=== PATIENT | male | born 1950 | race Caucasian/White ===

== ENCOUNTER → 2019-03-23 | Outpatient (REF) ==
[~2019-03-23] MED LIST: ACET65TA OR; COLA100C2 OR; FLEEENE4 PR; FOLI1TAB OR; KEPPRA OR; KEPPRA PO; LAMI1TAB9 OR; MILKSUS OR; MULTIVIT OR; SENO8.6T5 OR; TOPI200T OR; VIT D 2000 OR; VITA100T OR
[2019-03-23 09:14] LABS: HEMATOCRIT 43.8 % (42.0-52.0); HEMOGLOBIN 13.7 g/dl (13.5-17.5); MEAN CORPUSCULAR HGB CONC 31.3 g/dl (32.0-36.5); MEAN CORPUSCULAR VOLUME 92.8 fl (80.0-96.0); PLATELET COUNT, AUTOMATED 439 10^3/uL (150-450); RED BLOOD COUNT 4.72 10^6/uL (4.30-6.10); WHITE BLOOD COUNT 6.5 10^3/uL (4.0-10.0)
[2019-03-23 09:46] LABS: ALBUMIN 3.1 GM/DL (3.2-5.2); BILIRUBIN,TOTAL 0.4 MG/DL (0.2-1.0); CREATININE FOR GFR 1.31 MG/DL (0.70-1.30); GLOMERULAR FILTRATION RATE 57.6 (>42); TOTAL PROTEIN 8.7 GM/DL (6.4-8.2)
[2019-03-26 15:37] LABS: LAMOTRIGINE (LAMICTAL) 9.4 ug/mL (2.0-20.0); LEVETIRACETAM (KEPPRA) 50.5 ug/mL (10.0-40.0)
== END ==
LOC: SKLAB5 10:34
PROVIDERS: ATTEND Family Medicine
DX: R56.9 Unspecified convulsions (principal); Z51.81 Encounter for therapeutic drug level monitoring

== ENCOUNTER → 2019-03-28 | Outpatient (REF) | payer MEDICAID, MEDICARE | LOC: SKLAB5 10:32 | PROVIDERS: ATTEND Family Medicine | DX: D64.9 Anemia, unspecified (principal) ==

== ENCOUNTER → 2019-05-01 | Outpatient (REF) | payer MEDICARE, MEDICAID | LOC: M SMT 13:22 | PROVIDERS: ATTEND Urology | DX: N30.01 Acute cystitis with hematuria (principal) | CPT/HCPCS: 81002; 87086; G0463 ==

== ENCOUNTER → 2019-05-02 | Outpatient (REF) | payer MEDICARE, MEDICAID | LOC: SKLAB5 10:25 | PROVIDERS: ATTEND Family Medicine | DX: R56.9 Unspecified convulsions (principal) ==

== ENCOUNTER → 2019-05-03 | Outpatient (REF) | payer MEDICARE, MEDICAID | LOC: SKLAB5 09:14 | PROVIDERS: ATTEND Family Medicine | DX: R56.9 Unspecified convulsions (principal) ==

== ENCOUNTER → 2019-05-19 | Outpatient (REF) | payer MEDICARE, MEDICAID ==
[2019-05-19 10:30] LABS: APPEARANCE, URINE TURBID (CLEAR); COLOR, URINE AMBER (YELLOW); GLUCOSE, URINE (UA) AUTO NEGATIVE (NEGATIVE); PROTEIN, URINE AUTO 2+ mg/dL (NEGATIVE); SPECIFIC GRAVITY URINE AUTO 1.017 (1.002-1.035)
[2019-05-19 10:31] LABS: BACTERIA, URINE AUTO 2+ (NEGATIVE); BILIRUBIN, URINE AUTO NEGATIVE (NEGATIVE); BLOOD, URINE BLOOD 1 (NEGATIVE); KETONE, URINE AUTO NEGATIVE (NEGATIVE); LEUKOCYTE ESTERASE, URINE AUTO 3+ (NEGATIVE); NITRITE, URINE AUTO POSITIVE (NEGATIVE); RBC, URINE AUTO 17 /HPF (0-3); RENAL EPITHELIAL CELLS 2 /HPF; WBC, URINE AUTO 464 /HPF (0-3)
[2019-05-19 10:32] LABS: CALCIUM OXALATE CRYSTALS SMALL; MUCUS, URINE SMALL (NEGATIVE)
== END ==
LOC: SKLAB5 08:54
PROVIDERS: ATTEND Family Medicine
DX: N20.0 Calculus of kidney (principal)

== ENCOUNTER → 2019-05-22 | Outpatient (CLI) | payer MEDICARE, MEDICAID ==
--- NOTE | 2019-05-22 15:15 | REP ---
CT ABDOMEN WITHOUT IV OR ORAL CONTRAST: RENAL STONE PROTOCOL. HISTORY: Renal calculi. 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 The arms and hands overlie the abdomen. The patient was apparently unable to raise them out of the field of view. Axial CT images demonstrate no evidence of infiltrate or mass in the lung bases. No pleural or pericardial effusion. The liver and the spleen are normal in size, homogeneous in texture. No adrenal lesion is seen on either side. Pancreas is unremarkable. No abnormality is noted in the gallbladder. There is no hydronephrosis on either side. There is a 2 mm calcific density in the lower pole collecting system of the left kidney consistent with tiny intrarenal calculus. There is a 3 mm calculus at the lower pole collecting system of the right kidney. An adjacent smaller calculus is seen on coronal multiplanar re-formation images. There is a low-density cyst in the right kidney measuring 1.4 cm in diameter. There is a 2 mm stone in the upper pole collecting system of the left kidney. There is no evidence of hydronephrosis. There is a small focal outpouching of the anterior wall of the abdominal aorta. Abdominal aortic dimension at this level is 2.7 cm. A small focal aneurysm. Small and large intestinal bowel loops are unremarkable. Some vascular calcification. Impression: Bilateral intrarenal nephrolithiasis without hydronephrosis. Small right renal cyst. 2.7 cm infrarenal abdominal aortic aneurysm with small focal outpouching of its anterior abdominal wall. Electronically Signed by Kremit Sainz MD 05/22/2019 03:24 P
== END ==
LOC: M RAD 13:25
PROVIDERS: ATTEND Urology
DX: N20.0 Calculus of kidney (principal)

== ENCOUNTER → 2019-07-19 | Outpatient (REF) | LOC: SKLAB5 14:44 | PROVIDERS: ATTEND Internal Medicine | DX: Z03.818 Encounter for observation for suspected exposure to other biological agents ruled out (principal) ==

== ENCOUNTER → 2019-09-07 | Outpatient (REF) | payer MEDICARE, MEDICAID ==
[2019-09-07 08:16] LABS: HEMATOCRIT 38.6 % (42.0-52.0); HEMOGLOBIN 12.1 g/dl (13.5-17.5); MEAN CORPUSCULAR HEMOGLOBIN 30.2 pg (27.0-33.0); MEAN CORPUSCULAR HGB CONC 31.3 g/dl (32.0-36.5); MEAN CORPUSCULAR VOLUME 96.3 fl (80.0-96.0); PLATELET COUNT, AUTOMATED 255 10^3/uL (150-450); RED BLOOD COUNT 4.01 10^6/uL (4.30-6.10); WHITE BLOOD COUNT 4.8 10^3/uL (4.0-10.0)
[2019-09-07 08:38] LABS: ALBUMIN 2.9 GM/DL (3.2-5.2); ALT/SGPT 15 U/L (12-78); BILIRUBIN,TOTAL 0.2 MG/DL (0.2-1.0); BLOOD UREA NITROGEN 12 MG/DL (7-18); CALCIUM LEVEL 8.7 MG/DL (8.8-10.2); CARBON DIOXIDE LEVEL 24 MEQ/L (21-32); CHLORIDE LEVEL 113 MEQ/L (98-107); GLOMERULAR FILTRATION RATE > 60.0 (>42); GLUCOSE, FASTING 104 MG/DL (70-100); POTASSIUM SERUM 3.7 MEQ/L (3.5-5.1); SODIUM LEVEL 144 MEQ/L (136-145); TOTAL PROTEIN 7.7 GM/DL (6.4-8.2)
== END ==
LOC: SKLAB5 08:09
PROVIDERS: ATTEND Family Medicine
DX: D64.9 Anemia, unspecified (principal); G81.91 Hemiplegia, unspecified affecting right dominant side

== ENCOUNTER → 2019-10-12 | Outpatient (REF) | payer MEDICARE, MEDICAID | LOC: SKLAB5 12:15 | DX: Z51.81 Encounter for therapeutic drug level monitoring (principal) ==

== ENCOUNTER → 2019-11-09 | Outpatient (REF) | payer MEDICARE, MEDICAID ==
[2019-11-17 15:07] LABS: LAMOTRIGINE (LAMICTAL) 8.5 ug/mL (2.0-20.0); LEVETIRACETAM (KEPPRA) 35.5 ug/mL (10.0-40.0)
== END ==
LOC: SKLAB5 06:35
DX: G40.909 Epilepsy, unspecified, not intractable, without status epilepticus (principal)

== ENCOUNTER → 2019-12-08 | Outpatient (CLI) | payer MEDICARE, MEDICAID | LOC: M RAD 14:59 | PROVIDERS: ATTEND Nurse Practitioner Adult Health | DX: R32 Unspecified urinary incontinence (principal); Z53.9 Procedure and treatment not carried out, unspecified reason ==

== ENCOUNTER → 2020-01-01 | Outpatient (CLI) | payer MEDICARE, MEDICAID | LOC: M RAD 10:57 | PROVIDERS: ATTEND Nurse Practitioner Adult Health | DX: Z53.9 Procedure and treatment not carried out, unspecified reason (principal) ==

== ENCOUNTER → 2020-01-24 | Outpatient (REF) | payer MEDICARE, MEDICAID | LOC: SKLAB5 01-23 15:03 → EDSTATUS 02-24 15:20 | PROVIDERS: ATTEND Internal Medicine | DX: Z20.828 Contact with and (suspected) exposure to other viral communicable diseases (principal) ==

== ENCOUNTER → 2020-01-31 | Outpatient (REF) | payer MEDICARE, MEDICAID | LOC: SKLAB5 08:00 | PROVIDERS: ATTEND Internal Medicine | DX: Z20.828 Contact with and (suspected) exposure to other viral communicable diseases (principal) ==

== ENCOUNTER → 2020-02-14 | Outpatient (REF) | payer MEDICARE, MEDICAID | LOC: SKLAB5 06:40 | PROVIDERS: ATTEND Family Medicine | DX: Z20.828 Contact with and (suspected) exposure to other viral communicable diseases (principal) ==

== ENCOUNTER → 2020-02-21 | Outpatient (REF) | payer MEDICARE, MEDICAID | LOC: SKLAB5 09:11 | DX: Z20.828 Contact with and (suspected) exposure to other viral communicable diseases (principal) ==

== ENCOUNTER → 2020-02-22 | Outpatient (REF) | payer MEDICARE, MEDICAID ==
[2020-02-22 12:17] LABS: HEMATOCRIT 41.3 % (42.0-52.0); HEMOGLOBIN 12.5 g/dl (13.5-17.5); MEAN CORPUSCULAR HEMOGLOBIN 28.5 pg (27.0-33.0); MEAN CORPUSCULAR HGB CONC 30.3 g/dl (32.0-36.5); MEAN CORPUSCULAR VOLUME 94.3 fl (80.0-96.0); PLATELET COUNT, AUTOMATED 222 10^3/uL (150-450); RED BLOOD COUNT 4.38 10^6/uL (4.30-6.10); WHITE BLOOD COUNT 5.9 10^3/uL (4.0-10.0)
[2020-02-22 12:46] LABS: BLOOD UREA NITROGEN 16 MG/DL (7-18); CALCIUM LEVEL 8.8 MG/DL (8.8-10.2); CARBON DIOXIDE LEVEL 25 MEQ/L (21-32); CHLORIDE LEVEL 110 MEQ/L (98-107); GLOMERULAR FILTRATION RATE > 60.0 (>42); GLUCOSE, FASTING 84 MG/DL (70-100); SODIUM LEVEL 142 MEQ/L (136-145)
== END ==
LOC: SKLAB5 07:21
PROVIDERS: ATTEND Nurse Practitioner Adult Health
DX: R53.83 Other fatigue (principal)

== ENCOUNTER → 2020-02-28 | Outpatient (REF) | payer MEDICARE, MEDICAID | LOC: SKLAB5 05:59 | DX: Z20.828 Contact with and (suspected) exposure to other viral communicable diseases (principal) ==

== ENCOUNTER → 2020-03-06 | Outpatient (REF) | payer MEDICARE, MEDICAID | LOC: SKLAB5 06:31 | DX: Z20.828 Contact with and (suspected) exposure to other viral communicable diseases (principal) ==

== ENCOUNTER → 2020-03-13 | Outpatient (REF) | payer MEDICARE, MEDICAID | LOC: SKLAB5 07:01 | DX: Z11.52 Encounter for screening for COVID-19 (principal) ==

== ENCOUNTER → 2020-03-14 | Outpatient (REF) | payer MEDICARE, MEDICAID ==
[2020-03-14 10:49] LABS: HEMATOCRIT 42.2 % (42.0-52.0); HEMOGLOBIN 13.1 g/dl (13.5-17.5); MEAN CORPUSCULAR HEMOGLOBIN 29.6 pg (27.0-33.0); MEAN CORPUSCULAR VOLUME 95.3 fl (80.0-96.0); PLATELET COUNT, AUTOMATED 209 10^3/uL (150-450); RED BLOOD COUNT 4.43 10^6/uL (4.30-6.10); WHITE BLOOD COUNT 4.8 10^3/uL (4.0-10.0)
[2020-03-14 12:51] LABS: ALBUMIN 3.3 GM/DL (3.2-5.2); BILIRUBIN,TOTAL 0.5 MG/DL (0.2-1.0); CALCIUM LEVEL 9.1 MG/DL (8.8-10.2); CREATININE FOR GFR 1.31 MG/DL (0.70-1.30); GLOMERULAR FILTRATION RATE 57.4 (>42); POTASSIUM SERUM 3.8 MEQ/L (3.5-5.1); TOTAL PROTEIN 7.8 GM/DL (6.4-8.2)
== END ==
LOC: SKLAB5 09:01
DX: D33.2 Benign neoplasm of brain, unspecified (principal)

== ENCOUNTER → 2020-03-20 | Outpatient (REF) | payer MEDICARE, MEDICAID | LOC: SKLAB5 06:40 | PROVIDERS: ATTEND Internal Medicine | DX: Z20.822 Contact with and (suspected) exposure to COVID-19 (principal) ==

== ENCOUNTER → 2020-03-27 | Outpatient (REF) | payer MEDICARE, MEDICAID | LOC: SKLAB5 07:17 | PROVIDERS: ATTEND Internal Medicine | DX: Z20.822 Contact with and (suspected) exposure to COVID-19 (principal) ==

== ENCOUNTER → 2020-04-03 | Outpatient (REF) | payer MEDICARE, MEDICAID | LOC: SKLAB5 07:08 | PROVIDERS: ATTEND Internal Medicine | DX: Z20.822 Contact with and (suspected) exposure to COVID-19 (principal) ==

== ENCOUNTER → 2020-04-03 | Outpatient (REF) | payer MEDICARE, MEDICAID | LOC: SKLAB5 07:08 | PROVIDERS: ATTEND Internal Medicine | DX: Z20.822 Contact with and (suspected) exposure to COVID-19 (principal) ==

== ENCOUNTER → 2020-04-10 | Outpatient (REF) | payer MEDICARE, MEDICAID | LOC: SKLAB5 07:21 | PROVIDERS: ATTEND Internal Medicine | DX: Z20.822 Contact with and (suspected) exposure to COVID-19 (principal) ==

== ENCOUNTER → 2020-04-11 | Outpatient (REF) | payer MEDICARE, MEDICAID | LOC: SKLAB5 10:24 | DX: R56.9 Unspecified convulsions (principal) ==

== ENCOUNTER → 2020-04-17 | Outpatient (REF) | payer MEDICARE, MEDICAID | LOC: SKLAB5 06:23 | PROVIDERS: ATTEND Internal Medicine | DX: Z20.822 Contact with and (suspected) exposure to COVID-19 (principal) ==

== ENCOUNTER → 2020-04-24 | Outpatient (REF) | payer MEDICARE, MEDICAID | LOC: SKLAB5 06:35 | PROVIDERS: ATTEND Internal Medicine | DX: Z20.822 Contact with and (suspected) exposure to COVID-19 (principal) ==

== ENCOUNTER → 2020-05-01 | Outpatient (REF) | payer MEDICARE, MEDICAID | LOC: SKLAB5 08:00 | PROVIDERS: ATTEND Internal Medicine | DX: Z20.822 Contact with and (suspected) exposure to COVID-19 (principal) ==

== ENCOUNTER → 2020-05-09 | Outpatient (REF) | payer MEDICARE, MEDICAID | LOC: SKLAB5 06:06 | PROVIDERS: ATTEND Internal Medicine | DX: Z20.822 Contact with and (suspected) exposure to COVID-19 (principal) ==

== ENCOUNTER → 2020-05-15 | Outpatient (REF) | payer MEDICARE, MEDICAID | LOC: SKLAB5 06:30 | PROVIDERS: ATTEND Internal Medicine | DX: Z53.9 Procedure and treatment not carried out, unspecified reason (principal) ==

== ENCOUNTER → 2020-05-21 | Outpatient (REF) | payer MEDICARE, MEDICAID ==
[2020-05-21 18:30] LABS: APPEARANCE, URINE HAZY (CLEAR); BACTERIA, URINE AUTO 2+ (NEGATIVE); BILIRUBIN, URINE AUTO NEGATIVE (NEGATIVE); BLOOD, URINE BLOOD NEGATIVE (NEGATIVE); COLOR, URINE YELLOW (YELLOW); GLUCOSE, URINE (UA) AUTO NEGATIVE (NEGATIVE); KETONE, URINE AUTO NEGATIVE (NEGATIVE); LEUKOCYTE ESTERASE, URINE AUTO 3+ (NEGATIVE); MUCUS, URINE SMALL (NEGATIVE); NITRITE, URINE AUTO POSITIVE (NEGATIVE); PROTEIN, URINE AUTO 1+ mg/dL (NEGATIVE); RBC, URINE AUTO 5 /HPF (0-3); SQUAMOUS EPITHELIAL CELL UR AU 1 /HPF (0-6); UROBILINOGEN, URINE AUTO 0.2 mg/dL (0.0-2.0); WBC, URINE AUTO TNTC /HPF (0-3)
== END ==
LOC: SKLAB5 14:32
DX: R41.82 Altered mental status, unspecified (principal); R53.83 Other fatigue

== ENCOUNTER → 2020-05-22 | Outpatient (REF) | payer MEDICARE, MEDICAID | LOC: SKLAB5 07:34 | PROVIDERS: ATTEND Internal Medicine | DX: Z20.822 Contact with and (suspected) exposure to COVID-19 (principal) ==

== ENCOUNTER → 2020-06-07 | Outpatient (REF) | payer MEDICARE, MEDICAID | LOC: SKLAB5 07:12 | PROVIDERS: ATTEND Internal Medicine | DX: Z20.822 Contact with and (suspected) exposure to COVID-19 (principal) ==

== ENCOUNTER → 2020-09-05 | Outpatient (REF) | payer MEDICARE, MEDICAID ==
[2020-09-05 09:37] LABS: HEMOGLOBIN 13.1 g/dl (13.5-17.5); MEAN CORPUSCULAR HEMOGLOBIN 29.4 pg (27.0-33.0); MEAN CORPUSCULAR HGB CONC 31.2 g/dl (32.0-36.5); MEAN CORPUSCULAR VOLUME 94.4 fl (80.0-96.0); PLATELET COUNT, AUTOMATED 232 10^3/uL (150-450); RED BLOOD COUNT 4.45 10^6/uL (4.30-6.10); WHITE BLOOD COUNT 5.6 10^3/uL (4.0-10.0)
[2020-09-05 10:10] LABS: ALBUMIN 3.2 GM/DL (3.2-5.2); ALT/SGPT 22 U/L (12-78); BILIRUBIN,TOTAL 0.2 MG/DL (0.2-1.0); BLOOD UREA NITROGEN 15 MG/DL (7-18); CALCIUM LEVEL 8.7 MG/DL (8.8-10.2); CARBON DIOXIDE LEVEL 22 MEQ/L (21-32); CHLORIDE LEVEL 113 MEQ/L (98-107); GLOMERULAR FILTRATION RATE > 60.0 (>42); GLUCOSE, FASTING 97 MG/DL (70-100); POTASSIUM SERUM 3.6 MEQ/L (3.5-5.1); SODIUM LEVEL 142 MEQ/L (136-145); TOTAL PROTEIN 7.7 GM/DL (6.4-8.2)
== END ==
LOC: SKLAB5 08:54
DX: D49.6 Neoplasm of unspecified behavior of brain (principal); G40.909 Epilepsy, unspecified, not intractable, without status epilepticus; D64.9 Anemia, unspecified

== ENCOUNTER → 2020-10-10 | Outpatient (REF) | payer MEDICARE, MEDICAID | LOC: SKLAB5 09:20 | DX: G40.909 Epilepsy, unspecified, not intractable, without status epilepticus (principal) ==

== ENCOUNTER → 2020-12-24 | Outpatient (REF) | payer MEDICARE, MEDICAID | LOC: SKLAB5 11:32 | PROVIDERS: ATTEND Internal Medicine | DX: Z20.822 Contact with and (suspected) exposure to COVID-19 (principal) ==

== ENCOUNTER → 2020-12-26 | Outpatient (REF) | payer MEDICARE, MEDICAID | LOC: SKLAB5 09:13 | PROVIDERS: ATTEND Internal Medicine | DX: Z20.822 Contact with and (suspected) exposure to COVID-19 (principal) ==

== ENCOUNTER → 2020-12-28 | Outpatient (REF) | payer MEDICARE, MEDICAID ==
[2020-12-28 10:23] LABS: BASO % 0.1 % (0.0-1.0); HEMATOCRIT 43.5 % (42.0-52.0); HEMOGLOBIN 13.9 g/dl (13.5-17.5); LYMPH # 1.1 10^3/uL (1.5-5.0); LYMPH % 14.9 % (24.0-44.0); MEAN CORPUSCULAR HEMOGLOBIN 29.8 pg (27.0-33.0); MEAN CORPUSCULAR VOLUME 93.3 fl (80.0-96.0); MONO # 0.9 10^3/uL (0.0-0.8); MONO % 12.1 % (2.0-8.0); NEUTROPHILS # 5.2 10^3/uL (1.5-8.5); NEUTROPHILS % 72.3 % (36.0-66.0); RED BLOOD COUNT 4.66 10^6/uL (4.30-6.10); WHITE BLOOD COUNT 7.2 10^3/uL (4.0-10.0)
[2020-12-28 10:53] LABS: BILIRUBIN,TOTAL 0.3 MG/DL (0.2-1.0); CALCIUM LEVEL 8.4 MG/DL (8.8-10.2); CREATININE FOR GFR 1.29 MG/DL (0.70-1.30); GLOMERULAR FILTRATION RATE 58.3 (>42); POTASSIUM SERUM 3.8 MEQ/L (3.5-5.1); TOTAL PROTEIN 7.3 GM/DL (6.4-8.2)
== END ==
LOC: SKLAB5 08:48
PROVIDERS: ATTEND Internal Medicine
DX: I95.9 Hypotension, unspecified (principal)
CPT/HCPCS: 80053; 85025; U0002

== ENCOUNTER → 2020-12-30 | Outpatient (REF) | payer MEDICARE, MEDICAID | LOC: SKLAB5 06:16 | PROVIDERS: ATTEND Internal Medicine | DX: Z20.822 Contact with and (suspected) exposure to COVID-19 (principal) ==

== ENCOUNTER → 2021-01-02 | Outpatient (REF) | payer MEDICARE, MEDICAID | LOC: SKLAB5 06:09 | PROVIDERS: ATTEND Internal Medicine | DX: Z20.822 Contact with and (suspected) exposure to COVID-19 (principal); Z53.8 Procedure and treatment not carried out for other reasons ==

== ENCOUNTER → 2021-01-06 | Outpatient (REF) | payer MEDICARE, MEDICAID | LOC: SKLAB5 07:50 | PROVIDERS: ATTEND Internal Medicine | DX: Z20.822 Contact with and (suspected) exposure to COVID-19 (principal) ==

== ENCOUNTER → 2021-01-09 | Outpatient (REF) | payer MEDICARE, MEDICAID | LOC: SKLAB5 09:00 | PROVIDERS: ATTEND Internal Medicine | DX: Z20.822 Contact with and (suspected) exposure to COVID-19 (principal); Z53.9 Procedure and treatment not carried out, unspecified reason ==

== ENCOUNTER → 2021-01-15 | Outpatient (REF) | payer MEDICARE, MEDICAID | LOC: SKLAB5 13:29 | PROVIDERS: ATTEND Internal Medicine | DX: Z20.822 Contact with and (suspected) exposure to COVID-19 (principal) ==

== ENCOUNTER → 2021-01-22 | Outpatient (REF) | payer MEDICARE, MEDICAID | LOC: SKLAB5 07:50 | PROVIDERS: ATTEND Internal Medicine | DX: Z20.822 Contact with and (suspected) exposure to COVID-19 (principal) ==

== ENCOUNTER → 2021-02-10 | Outpatient (REF) | payer MEDICARE, MEDICAID ==
[2021-02-10 13:32] LABS: HEMATOCRIT 42.5 % (42.0-52.0); HEMOGLOBIN 13.4 g/dl (13.5-17.5); MEAN CORPUSCULAR HEMOGLOBIN 29.8 pg (27.0-33.0); MEAN CORPUSCULAR HGB CONC 31.5 g/dl (32.0-36.5); MEAN CORPUSCULAR VOLUME 94.4 fl (80.0-96.0); PLATELET COUNT, AUTOMATED 227 10^3/uL (150-450); WHITE BLOOD COUNT 9.8 10^3/uL (4.0-10.0)
[2021-02-10 13:53] LABS: CALCIUM LEVEL 8.9 MG/DL (8.8-10.2); CREATININE FOR GFR 1.29 MG/DL (0.70-1.30); GLOMERULAR FILTRATION RATE 58.3 (>42); POTASSIUM SERUM 4.1 MEQ/L (3.5-5.1)
--- NOTE | 2021-02-10 15:12 | REP ---
INDICATION: SHORTNESS OF BREATH. COMPARISON: None. TECHNIQUE: Single portable AP view of the chest was performed. FINDINGS: There is no acute infiltrate or pulmonary edema. Lungs are clear. The heart is not significantly enlarged. The mediastinal silhouette is unremarkable. The visualized osseous structures are intact.There is elevation of the right hemidiaphragm. IMPRESSION: No acute pulmonary disease. <Electronically signed by Raymundo Fontana > 02/10/21 [id number]
== END ==
LOC: SKLAB5 12:26
PROVIDERS: ATTEND Internal Medicine
DX: R06.02 Shortness of breath (principal); J98.6 Disorders of diaphragm

== ENCOUNTER → 2021-02-11 | Outpatient (REF) | payer MEDICARE, MEDICAID | LOC: SKLAB5 10:54 | PROVIDERS: ATTEND Internal Medicine | DX: Z20.822 Contact with and (suspected) exposure to COVID-19 (principal) ==

== ENCOUNTER → 2021-02-12 | Outpatient (REF) | payer MEDICARE, MEDICAID ==
[2021-02-12 13:28] LABS: APPEARANCE, URINE CLOUDY (CLEAR); BACTERIA, URINE AUTO 1+ (NEGATIVE); BILIRUBIN, URINE AUTO NEGATIVE (NEGATIVE); BLOOD, URINE BLOOD 2+ (NEGATIVE); COLOR, URINE YELLOW (YELLOW); GLUCOSE, URINE (UA) AUTO NEGATIVE (NEGATIVE); KETONE, URINE AUTO NEGATIVE (NEGATIVE); LEUKOCYTE ESTERASE, URINE AUTO 3+ (NEGATIVE); MUCUS, URINE SMALL (NEGATIVE); NITRITE, URINE AUTO POSITIVE (NEGATIVE); PROTEIN, URINE AUTO 1+ mg/dL (NEGATIVE); RBC, URINE AUTO 6 /HPF (0-3); SPECIFIC GRAVITY URINE AUTO 1.017 (1.002-1.035); SQUAMOUS EPITHELIAL CELL UR AU 0 /HPF (0-6); WBC, URINE AUTO 180 /HPF (0-3)
== END ==
LOC: SKLAB5 11:53
PROVIDERS: ATTEND Internal Medicine
DX: R53.83 Other fatigue (principal)

== ENCOUNTER → 2021-02-19 | Outpatient (REF) | payer MEDICARE, MEDICAID | LOC: SKLAB5 13:40 | PROVIDERS: ATTEND Internal Medicine | DX: Z20.822 Contact with and (suspected) exposure to COVID-19 (principal) ==

== ENCOUNTER → 2021-02-26 | Outpatient (REF) | payer MEDICARE, MEDICAID | LOC: SKLAB5 14:27 | PROVIDERS: ATTEND Internal Medicine | DX: Z20.822 Contact with and (suspected) exposure to COVID-19 (principal) ==

== ENCOUNTER → 2021-03-05 | Outpatient (REF) | payer MEDICARE, MEDICAID | LOC: SKLAB5 11:10 | PROVIDERS: ATTEND Internal Medicine | DX: Z20.822 Contact with and (suspected) exposure to COVID-19 (principal) ==

== ENCOUNTER → 2021-03-12 | Outpatient (REF) | payer MEDICARE, MEDICAID | LOC: SKLAB5 07:00 | PROVIDERS: ATTEND Internal Medicine | DX: Z20.822 Contact with and (suspected) exposure to COVID-19 (principal) ==

== ENCOUNTER → 2021-03-20 | Outpatient (REF) | payer MEDICARE, MEDICAID ==
[2021-03-20 08:52] LABS: HEMATOCRIT 41.7 % (42.0-52.0); HEMOGLOBIN 12.9 g/dl (13.5-17.5); MEAN CORPUSCULAR HEMOGLOBIN 29.6 pg (27.0-33.0); MEAN CORPUSCULAR HGB CONC 30.9 g/dl (32.0-36.5); MEAN CORPUSCULAR VOLUME 95.6 fl (80.0-96.0); PLATELET COUNT, AUTOMATED 227 10^3/uL (150-450); RED BLOOD COUNT 4.36 10^6/uL (4.30-6.10); WHITE BLOOD COUNT 5.7 10^3/uL (4.0-10.0)
[2021-03-20 09:21] LABS: ALBUMIN 3.2 GM/DL (3.2-5.2); BILIRUBIN,TOTAL 0.3 MG/DL (0.2-1.0); CREATININE FOR GFR 1.37 MG/DL (0.70-1.30); GLOMERULAR FILTRATION RATE 54.4 (>42); POTASSIUM SERUM 3.8 MEQ/L (3.5-5.1); TOTAL PROTEIN 7.9 GM/DL (6.4-8.2)
== END ==
LOC: SKLAB5 07:00
PROVIDERS: ATTEND Internal Medicine
DX: R56.9 Unspecified convulsions (principal); Z51.81 Encounter for therapeutic drug level monitoring; Z79.899 Other long term (current) drug therapy

== ENCOUNTER → 2021-05-29 | Outpatient (REF) | payer MEDICARE, MEDICAID ==
[2021-05-29 11:02] LABS: CHOLESTEROL RISK RATIO 8.964 (<5)
== END ==
LOC: SKLAB5 07:00
PROVIDERS: ATTEND Internal Medicine
DX: Z79.899 Other long term (current) drug therapy (principal)

== ENCOUNTER → 2021-08-31 | Outpatient (REF) ==
[2021-08-31 19:35] LABS: HEMATOCRIT 40.7 % (42.0-52.0); HEMOGLOBIN 13.2 g/dl (13.5-17.5); MEAN CORPUSCULAR HGB CONC 32.4 g/dl (32.0-36.5); MEAN CORPUSCULAR VOLUME 92.5 fl (80.0-96.0); PLATELET COUNT, AUTOMATED 197 10^3/uL (150-450)
[2021-08-31 19:59] LABS: ALBUMIN 3.2 GM/DL (3.2-5.2); BILIRUBIN,TOTAL 0.3 MG/DL (0.2-1.0); CALCIUM LEVEL 8.7 MG/DL (8.8-10.2); CREATININE FOR GFR 1.55 MG/DL (0.70-1.30); POTASSIUM SERUM 3.7 MEQ/L (3.5-5.1); TOTAL PROTEIN 7.4 GM/DL (6.4-8.2)
== END ==
LOC: SKLAB5 19:04
PROVIDERS: ATTEND Internal Medicine
DX: T17.908A Unspecified foreign body in respiratory tract, part unspecified causing other injury, initial encounter (principal)

== ENCOUNTER → 2021-09-23 | Outpatient (REF) | payer MEDICARE, MEDICAID | LOC: SKLAB5 06:00 | PROVIDERS: ATTEND Internal Medicine | DX: Z79.899 Other long term (current) drug therapy (principal) ==

== ENCOUNTER → 2021-10-21 | Outpatient (REF) | payer MEDICARE, MEDICAID ==
[2021-10-24 11:09] LABS: LAMOTRIGINE (LAMICTAL) 9.1 ug/mL (2.0-20.0); LEVETIRACETAM (KEPPRA) 28.3 ug/mL (10.0-40.0)
== END ==
LOC: SKLAB5 07:00
PROVIDERS: ATTEND Internal Medicine
DX: Z79.899 Other long term (current) drug therapy (principal); G40.909 Epilepsy, unspecified, not intractable, without status epilepticus

== ENCOUNTER → 2021-11-11 | Outpatient (REF) | payer MEDICARE, MEDICAID ==
[2021-11-11 08:05] LABS: BLOOD UREA NITROGEN 17 MG/DL (7-18); CALCIUM LEVEL 8.4 MG/DL (8.8-10.2); CARBON DIOXIDE LEVEL 21 MEQ/L (21-32); CHLORIDE LEVEL 117 MEQ/L (98-107); CREATININE FOR GFR 1.21 MG/DL (0.70-1.30); GLOMERULAR FILTRATION RATE > 60.0 (>42); GLUCOSE, FASTING 103 MG/DL (70-100); POTASSIUM SERUM 3.8 MEQ/L (3.5-5.1); SODIUM LEVEL 143 MEQ/L (136-145)
== END ==
LOC: SKLAB5 07:00
PROVIDERS: ATTEND Nurse Practitioner Adult Health
DX: N18.9 Chronic kidney disease, unspecified (principal)

== ENCOUNTER → 2021-11-14 | Outpatient (REF) | payer MEDICARE, MEDICAID ==
[2021-11-14 10:34] LABS: CALCIUM LEVEL 8.8 MG/DL (8.8-10.2); CREATININE FOR GFR 1.29 MG/DL (0.70-1.30); GLOMERULAR FILTRATION RATE 58.1 (>42); POTASSIUM SERUM 3.8 MEQ/L (3.5-5.1)
== END ==
LOC: SKLAB5 07:00
PROVIDERS: ATTEND Nurse Practitioner Adult Health
DX: N18.9 Chronic kidney disease, unspecified (principal)

== ENCOUNTER → 2021-11-25 | Outpatient (REF) | payer MEDICARE, MEDICAID ==
[2021-11-25 12:08] LABS: CHOLESTEROL RISK RATIO 8.185 (<5)
== END ==
LOC: SKLAB5 12:04
PROVIDERS: ATTEND Internal Medicine
DX: E78.00 Pure hypercholesterolemia, unspecified (principal)

== ENCOUNTER → 2021-12-18 | Outpatient (REF) | payer MEDICARE, MEDICAID ==
[2021-12-18 09:58] LABS: HEMATOCRIT 41.1 % (42.0-52.0); HEMOGLOBIN 13.3 g/dl (13.5-17.5); MEAN CORPUSCULAR HEMOGLOBIN 30.2 pg (27.0-33.0); MEAN CORPUSCULAR HGB CONC 32.4 g/dl (32.0-36.5); MEAN CORPUSCULAR VOLUME 93.2 fl (80.0-96.0); PLATELET COUNT, AUTOMATED 176 10^3/uL (150-450); RED BLOOD COUNT 4.41 10^6/uL (4.30-6.10); WHITE BLOOD COUNT 3.4 10^3/uL (4.0-10.0)
[2021-12-18 10:28] LABS: CREATININE FOR GFR 1.45 MG/DL (0.70-1.30); GLOMERULAR FILTRATION RATE 50.8 (>42); POTASSIUM SERUM 3.4 MEQ/L (3.5-5.1)
[2021-12-18 10:29] LABS: ALBUMIN 3.1 GM/DL (3.2-5.2); BILIRUBIN,TOTAL 0.3 MG/DL (0.2-1.0); CALCIUM LEVEL 8.4 MG/DL (8.8-10.2); TOTAL PROTEIN 7.2 GM/DL (6.4-8.2)
== END ==
LOC: SKLAB5 09:08
PROVIDERS: ATTEND Internal Medicine
DX: U07.1 COVID-19 (principal); Z79.899 Other long term (current) drug therapy

== ENCOUNTER → 2021-12-21 | Outpatient (REF) | LOC: M LAB 11:01 → SKLAB2 11:01 | PROVIDERS: ATTEND Internal Medicine | DX: Z53.8 Procedure and treatment not carried out for other reasons (principal) ==

== ENCOUNTER → 2021-12-21 | Outpatient (CLI) | payer MEDICARE, MEDICAID | LOC: M LAB 10:58 | PROVIDERS: ATTEND Internal Medicine | DX: Z53.8 Procedure and treatment not carried out for other reasons (principal) ==

== ENCOUNTER → 2021-12-21 | Outpatient (REF) ==
[2021-12-21 11:40] LABS: BASO % 0.2 % (0.0-1.0); HEMATOCRIT 41.3 % (42.0-52.0); HEMOGLOBIN 13.2 g/dl (13.5-17.5); LYMPH # 1.3 10^3/uL (1.5-5.0); LYMPH % 26.3 % (24.0-44.0); MEAN CORPUSCULAR HEMOGLOBIN 30.3 pg (27.0-33.0); MEAN CORPUSCULAR VOLUME 94.7 fl (80.0-96.0); MONO # 0.6 10^3/uL (0.0-0.8); MONO % 12.8 % (2.0-8.0); NEUTROPHILS % 60.5 % (36.0-66.0); PLATELET COUNT, AUTOMATED 189 10^3/uL (150-450); RED BLOOD COUNT 4.36 10^6/uL (4.30-6.10); WHITE BLOOD COUNT 4.9 10^3/uL (4.0-10.0)
[2021-12-21 12:13] LABS: CALCIUM LEVEL 8.6 MG/DL (8.8-10.2); CREATININE FOR GFR 1.28 MG/DL (0.70-1.30); GLOMERULAR FILTRATION RATE 58.6 (>42); POTASSIUM SERUM 3.9 MEQ/L (3.5-5.1)
== END ==
LOC: SKLAB5 04:37
PROVIDERS: ATTEND Internal Medicine
DX: I95.9 Hypotension, unspecified (principal)

== ENCOUNTER → 2021-12-22 | Outpatient (REF) | payer MEDICAID, MEDICARE ==
[2021-12-22 07:49] LABS: HEMATOCRIT 39.3 % (42.0-52.0); HEMOGLOBIN 12.8 g/dl (13.5-17.5); MEAN CORPUSCULAR HEMOGLOBIN 30.1 pg (27.0-33.0); MEAN CORPUSCULAR HGB CONC 32.6 g/dl (32.0-36.5); MEAN CORPUSCULAR VOLUME 92.5 fl (80.0-96.0); PLATELET COUNT, AUTOMATED 201 10^3/uL (150-450); RED BLOOD COUNT 4.25 10^6/uL (4.30-6.10); WHITE BLOOD COUNT 5.8 10^3/uL (4.0-10.0)
[2021-12-22 08:28] LABS: ALBUMIN 2.9 GM/DL (3.2-5.2); ALT/SGPT 24 U/L (12-78); BILIRUBIN,TOTAL 0.4 MG/DL (0.2-1.0); BLOOD UREA NITROGEN 13 MG/DL (7-18); CALCIUM LEVEL 8.4 MG/DL (8.8-10.2); CARBON DIOXIDE LEVEL 22 MEQ/L (21-32); CHLORIDE LEVEL 112 MEQ/L (98-107); CREATININE FOR GFR 1.24 MG/DL (0.70-1.30); GLOMERULAR FILTRATION RATE > 60.0 (>42); GLUCOSE, FASTING 116 MG/DL (70-100); POTASSIUM SERUM 3.7 MEQ/L (3.5-5.1); SODIUM LEVEL 139 MEQ/L (136-145); TOTAL PROTEIN 7.2 GM/DL (6.4-8.2)
== END ==
LOC: SKLAB5 09:29
PROVIDERS: ATTEND Internal Medicine
DX: U07.1 COVID-19 (principal)

== ENCOUNTER → 2021-12-24 | Outpatient (REF) | payer MEDICARE, MEDICAID | LOC: SKLAB5 14:04 | PROVIDERS: ATTEND Nurse Practitioner Adult Health | DX: E87.6 Hypokalemia (principal) ==

== ENCOUNTER → 2021-12-25 | Outpatient (REF) | payer MEDICARE, MEDICAID ==
[2021-12-25 13:15] LABS: HEMATOCRIT 41.9 % (42.0-52.0); HEMOGLOBIN 13.1 g/dl (13.5-17.5); MEAN CORPUSCULAR HEMOGLOBIN 29.7 pg (27.0-33.0); MEAN CORPUSCULAR HGB CONC 31.3 g/dl (32.0-36.5); PLATELET COUNT, AUTOMATED 274 10^3/uL (150-450); RED BLOOD COUNT 4.41 10^6/uL (4.30-6.10); WHITE BLOOD COUNT 5.3 10^3/uL (4.0-10.0)
[2021-12-25 14:27] LABS: ALT/SGPT 18 U/L (12-78); BILIRUBIN,TOTAL 0.5 MG/DL (0.2-1.0); BLOOD UREA NITROGEN 16 MG/DL (7-18); CALCIUM LEVEL 8.6 MG/DL (8.8-10.2); CARBON DIOXIDE LEVEL 21 MEQ/L (21-32); CHLORIDE LEVEL 113 MEQ/L (98-107); CREATININE FOR GFR 1.18 MG/DL (0.70-1.30); GLOMERULAR FILTRATION RATE > 60.0 (>42); GLUCOSE, FASTING 80 MG/DL (70-100); POTASSIUM SERUM 3.4 MEQ/L (3.5-5.1); SODIUM LEVEL 141 MEQ/L (136-145); TOTAL PROTEIN 7.4 GM/DL (6.4-8.2)
== END ==
LOC: SKLAB2 13:18
PROVIDERS: ATTEND Nurse Practitioner Family
DX: U07.1 COVID-19 (principal); Z79.899 Other long term (current) drug therapy

== ENCOUNTER → 2021-12-29 | Outpatient (REF) | payer MEDICARE, MEDICAID ==
[2021-12-29 08:32] LABS: HEMATOCRIT 43.1 % (42.0-52.0); HEMOGLOBIN 13.7 g/dl (13.5-17.5); MEAN CORPUSCULAR HEMOGLOBIN 30.2 pg (27.0-33.0); MEAN CORPUSCULAR HGB CONC 31.8 g/dl (32.0-36.5); MEAN CORPUSCULAR VOLUME 94.9 fl (80.0-96.0); PLATELET COUNT, AUTOMATED 335 10^3/uL (150-450); RED BLOOD COUNT 4.54 10^6/uL (4.30-6.10); WHITE BLOOD COUNT 5.8 10^3/uL (4.0-10.0)
[2021-12-29 09:36] LABS: BILIRUBIN,TOTAL 0.4 MG/DL (0.2-1.0); CALCIUM LEVEL 9.3 MG/DL (8.8-10.2); CREATININE FOR GFR 1.51 MG/DL (0.70-1.30); GLOMERULAR FILTRATION RATE 48.5 (>42); POTASSIUM SERUM 3.9 MEQ/L (3.5-5.1); TOTAL PROTEIN 7.8 GM/DL (6.4-8.2)
== END ==
LOC: SKLAB5 12:06
PROVIDERS: ATTEND Nurse Practitioner Adult Health
DX: U07.1 COVID-19 (principal); Z79.899 Other long term (current) drug therapy

== ENCOUNTER → 2022-01-01 | Outpatient (REF) | payer MEDICARE, MEDICAID ==
[2022-01-01 09:24] LABS: HEMATOCRIT 43.1 % (42.0-52.0); HEMOGLOBIN 13.7 g/dl (13.5-17.5); MEAN CORPUSCULAR HGB CONC 31.8 g/dl (32.0-36.5); MEAN CORPUSCULAR VOLUME 94.5 fl (80.0-96.0); PLATELET COUNT, AUTOMATED 241 10^3/uL (150-450); RED BLOOD COUNT 4.56 10^6/uL (4.30-6.10); WHITE BLOOD COUNT 6.2 10^3/uL (4.0-10.0)
[2022-01-01 09:57] LABS: ALBUMIN 2.9 GM/DL (3.2-5.2); BILIRUBIN,TOTAL 0.4 MG/DL (0.2-1.0); CALCIUM LEVEL 8.9 MG/DL (8.8-10.2); CREATININE FOR GFR 1.39 MG/DL (0.70-1.30); GLOMERULAR FILTRATION RATE 53.3 (>42); TOTAL PROTEIN 7.8 GM/DL (6.4-8.2)
== END ==
LOC: SKLAB5 08:54
PROVIDERS: ATTEND Nurse Practitioner Adult Health
DX: N18.9 Chronic kidney disease, unspecified (principal); U07.1 COVID-19

== ENCOUNTER 2022-02-09 17:08 | Inpatient (IN) | payer MEDICARE, MEDICAID ==
[~2022-02-09] VITALS: Ht 182.9 cm; Wt 73.6 kg
[~2022-02-09 17:08] MED LIST changes: -ACET-907 PO; -BISA10SU27 PR; -ERGO500029 PO; -FINA5TAB2 PO; -FLEEENE12 PR; -IPRA0.00 INH; -KEPP10002 PO; -LAMO200T3 PO; -LOVE1INJ SC; -MIDO5TA PO; -MILKSUS3 PO; -MIRT-62 PO; -TOPI200T7 PO
[2022-02-09 18:03] LABS: BASO % 0.1 % (0.0-1.0); HEMATOCRIT 41.9 % (42.0-52.0); HEMOGLOBIN 13.4 g/dl (13.5-17.5); LYMPH # 0.7 10^3/uL (1.5-5.0); LYMPH % 10.1 % (24.0-44.0); MEAN CORPUSCULAR HEMOGLOBIN 30.1 pg (27.0-33.0); MEAN CORPUSCULAR VOLUME 94.2 fl (80.0-96.0); MONO # 0.5 10^3/uL (0.0-0.8); MONO % 7.4 % (2.0-8.0); NEUTROPHILS # 5.8 10^3/uL (1.5-8.5); NEUTROPHILS % 82.1 % (36.0-66.0); PLATELET COUNT, AUTOMATED 236 10^3/uL (150-450); RED BLOOD COUNT 4.45 10^6/uL (4.30-6.10)
[2022-02-09 18:24] LABS: BLOOD UREA NITROGEN 15 MG/DL (9-23); CALCIUM LEVEL 8.3 MG/DL (8.3-10.6); CARBON DIOXIDE LEVEL 20 MMOL/L (20-31); CHLORIDE LEVEL 110 MMOL/L (98-107); CREATININE FOR GFR 1.01 MG/DL (0.70-1.30); GLOMERULAR FILTRATION RATE > 60.0 (>42); GLUCOSE, FASTING 145 MG/DL (74-106); POTASSIUM SERUM 3.9 MMOL/L (3.5-5.1); SODIUM LEVEL 140 MMOL/L (136-145)
[2022-02-09 18:25] LABS: ALBUMIN 3.2 G/DL (3.2-5.2); BILIRUBIN,DIRECT 0.2 MG/DL (<0.4); BILIRUBIN,TOTAL 0.6 MG/DL (0.3-1.2); TOTAL PROTEIN 7.5 G/DL (5.7-8.2)
[2022-02-09 18:30] LABS: INR 1.09; PROTHROMBIN TIME 14.3 SECONDS (12.5-14.5)
[2022-02-09 18:31] LABS: PARTIAL THROMBOPLASTIN TIME 38.1 SECONDS (24.8-34.2)
[2022-02-09 19:01] LABS: RSV AMPLIFICATION NEGATIVE (NEGATIVE)
[2022-02-09] MEDS ORDERED: TOPI200T7 PO (21:05)
[2022-02-09] MEDS ORDERED: IPRA0.00 INH (21:05)
[2022-02-09] MEDS ORDERED: ACET-907 PO (21:05)
[2022-02-09] MEDS ORDERED: FINA5TAB2 PO (21:05)
[2022-02-09] MEDS ORDERED: ERGO500029 PO (21:05)
[2022-02-09] MEDS ORDERED: FLEEENE12 PR (21:05)
[2022-02-09] MEDS ORDERED: MIRT-62 PO (21:05)
[2022-02-09] MEDS ORDERED: KEPP10002 PO ×2 (21:05)
[2022-02-09] MEDS ORDERED: BISA10SU27 PR (21:05)
[2022-02-09] MEDS ORDERED: LAMO200T3 PO (21:05)
[2022-02-09] MEDS ORDERED: MILKSUS3 PO (21:08)
[2022-02-09] MEDS ORDERED: HOME MED LIST COMPLETE! XX SCH (21:10)
[2022-02-09] MEDS ORDERED: IPRATROPIUM 0.5MG/ALBUTEROL 2.5MG INH SOL UD 3ML (DUONEB) INH PRN (21:20)
[2022-02-09] MEDS ORDERED: BISACODYL 10 MG SUPP PR PRN (21:20)
[2022-02-09] MEDS: TOPIRAMATE (TopAMAX) 100 MG TAB PO SCH (21:53)
[2022-02-09] MEDS: lamoTRIgine 100MG TAB PO SCH (21:53)
[2022-02-09] MEDS: levETIRAcetam 250MG TABLET (KEPPRA) PO SCH (21:54)
[2022-02-09] MEDS ORDERED: HYDROmorphone 2 MG TAB PO PRN (22:30)
[2022-02-09] MEDS: NS 1,000 ML IV SCH (23:45)
[2022-02-10 05:09] VITALS: BP 155/89
[2022-02-10] MEDS ORDERED: HEPARIN SOD (PORCINE) 5000UNITS/ML 1ML VIAL/SYRINGE SC SCH (06:00)
[2022-02-10] MEDS: MIRTAZAPINE 15 MG TAB PO SCH (08:38)
[2022-02-10] MEDS: lamoTRIgine 100MG TAB PO SCH ×2 (08:38→21:55)
[2022-02-10] MEDS: levETIRAcetam 250MG TABLET (KEPPRA) PO SCH ×2 (08:38→21:55)
[2022-02-10] MEDS: FINASTERIDE 5MG TAB PO SCH (08:38)
[2022-02-10] MEDS: TOPIRAMATE (TopAMAX) 100 MG TAB PO SCH ×2 (08:39→21:55)
[2022-02-10 10:37] LABS: BASO % 0.1 % (0.0-1.0); HEMATOCRIT 40.8 % (42.0-52.0); LYMPH # 1.1 10^3/uL (1.5-5.0); LYMPH % 15.3 % (24.0-44.0); MEAN CORPUSCULAR HGB CONC 31.9 g/dl (32.0-36.5); MEAN CORPUSCULAR VOLUME 94.2 fl (80.0-96.0); MONO # 0.7 10^3/uL (0.0-0.8); MONO % 10.6 % (2.0-8.0); NEUTROPHILS # 5.1 10^3/uL (1.5-8.5); NEUTROPHILS % 73.6 % (36.0-66.0); PLATELET COUNT, AUTOMATED 215 10^3/uL (150-450); RED BLOOD COUNT 4.33 10^6/uL (4.30-6.10)
[2022-02-10 11:04] LABS: BLOOD UREA NITROGEN 13 MG/DL (9-23); CALCIUM LEVEL 8.1 MG/DL (8.3-10.6); CARBON DIOXIDE LEVEL 18 MMOL/L (20-31); CHLORIDE LEVEL 112 MMOL/L (98-107); CREATININE FOR GFR 0.92 MG/DL (0.70-1.30); GLOMERULAR FILTRATION RATE > 60.0 (>42); GLUCOSE, FASTING 117 MG/DL (74-106); POTASSIUM SERUM 3.9 MMOL/L (3.5-5.1); SODIUM LEVEL 139 MMOL/L (136-145)
[2022-02-10] MEDS: NS 1,000 ML IV SCH (11:06)
[2022-02-10 14:00] VITALS: BP 154/87
[2022-02-10] MEDS ORDERED: ENOXAPARIN 40MG/0.4ML SYRINGE (J1650 PER 10MG) SC ONE (17:20)
[2022-02-10] MEDS: ACETAMINOPHEN TAB 650MG DOSE (2X325MG) PO PRN (18:33)
[2022-02-10 21:58] VITALS: BP 127/74
[2022-02-11] VITALS (7 sets, daily range): BP systolic 107–143; BP diastolic 67–86
[2022-02-11 08:17] LABS: BASO % 0.1 % (0.0-1.0); HEMATOCRIT 40.9 % (42.0-52.0); HEMOGLOBIN 12.9 g/dl (13.5-17.5); LYMPH # 0.9 10^3/uL (1.5-5.0); LYMPH % 13.6 % (24.0-44.0); MEAN CORPUSCULAR HEMOGLOBIN 29.9 pg (27.0-33.0); MEAN CORPUSCULAR HGB CONC 31.5 g/dl (32.0-36.5); MEAN CORPUSCULAR VOLUME 94.7 fl (80.0-96.0); MONO # 0.8 10^3/uL (0.0-0.8); MONO % 11.1 % (2.0-8.0); NEUTROPHILS # 5.1 10^3/uL (1.5-8.5); NEUTROPHILS % 74.9 % (36.0-66.0); PLATELET COUNT, AUTOMATED 216 10^3/uL (150-450); RED BLOOD COUNT 4.32 10^6/uL (4.30-6.10); WHITE BLOOD COUNT 6.8 10^3/uL (4.0-10.0)
[2022-02-11 09:06] LABS: BLOOD UREA NITROGEN 15 MG/DL (9-23); CALCIUM LEVEL 8.4 MG/DL (8.3-10.6); CARBON DIOXIDE LEVEL 20 MMOL/L (20-31); CHLORIDE LEVEL 112 MMOL/L (98-107); CREATININE FOR GFR 0.97 MG/DL (0.70-1.30); GLOMERULAR FILTRATION RATE > 60.0 (>42); GLUCOSE, FASTING 120 MG/DL (74-106); SODIUM LEVEL 140 MMOL/L (136-145)
[2022-02-11] MEDS: TOPIRAMATE (TopAMAX) 100 MG TAB PO SCH ×2 (09:34→22:50)
[2022-02-11] MEDS: FINASTERIDE 5MG TAB PO SCH (09:34)
[2022-02-11] MEDS: MIRTAZAPINE 15 MG TAB PO SCH (09:34)
[2022-02-11] MEDS: levETIRAcetam 250MG TABLET (KEPPRA) PO SCH ×2 (09:34→22:50)
[2022-02-11] MEDS: lamoTRIgine 100MG TAB PO SCH ×2 (09:35→22:49)
[2022-02-11] MEDS: ACETAMINOPHEN TAB 650MG DOSE (2X325MG) PO PRN (09:35)
[2022-02-11] MEDS ORDERED: NS 1,000 ML IV SCH (10:35)
[2022-02-11] MEDS ORDERED: TRANEXAMIC ACID 100 MG/ML 10ML VIAL As Ordered ONE (16:19)
[2022-02-11] MEDS ORDERED: VANCOMYCIN 500MG/10ML VIAL As Ordered ONE (16:19)
[2022-02-11] MEDS: ceFAZolin 2 GM/D5W 50 ML IV BAG As Ordered ONE (17:08)
[2022-02-11] MEDS ORDERED: KETAMINE HCL 200 MG/20 ML VIAL As Ordered ONE (17:12)
[2022-02-11] MEDS ORDERED: propofoL 200 MG/20 ML VIAL As Ordered ONE (17:12)
[2022-02-11] MEDS ORDERED: MIDAZOLAM INJ 2MG/2ML VIAL (J2250 PER 1MG) As Ordered ONE (17:12)
[2022-02-11] MEDS ORDERED: ePHEDrine SULFATE 25 MG/5 ML(5MG/ML) SYRINGE As Ordered ONE (17:19)
[2022-02-11] MEDS ORDERED: PHENYLephrine 500MCG 5ML (100MCG/ML) SYRINGE As Ordered ONE (17:25)
[2022-02-11] MEDS ORDERED: HYDROMORPHONE HCL 0.5 MG/ 0.5 ML SYRINGE (J1170 PER 1) IV PRN (18:30)
[2022-02-11] MEDS ORDERED: LR 1,000 ML IV SCH (18:30)
[2022-02-11] MEDS ORDERED: oxyCODONE 5MG TAB PO PRN (18:30)
[2022-02-11] MEDS ORDERED: ONDANSETRON 4MG 2ML VIAL IV PRN (18:30)
[2022-02-11] MEDS ORDERED: fentaNYL 100 MCG/2 ML INJECTION IV PRN (18:30)
[2022-02-12] VITALS (9 sets, daily range): BP systolic 102–138; BP diastolic 66–87
[2022-02-12] MEDS: ceFAZolin SOD 2 GM in IV 1 EA IV SCH ×3 (01:33→17:17)
[2022-02-12 06:11] LABS: HEMATOCRIT 35.9 % (42.0-52.0); HEMOGLOBIN 11.7 g/dl (13.5-17.5); LYMPH # 0.7 10^3/uL (1.5-5.0); LYMPH % 9.2 % (24.0-44.0); MEAN CORPUSCULAR HEMOGLOBIN 30.1 pg (27.0-33.0); MEAN CORPUSCULAR HGB CONC 32.6 g/dl (32.0-36.5); MEAN CORPUSCULAR VOLUME 92.3 fl (80.0-96.0); MONO # 0.8 10^3/uL (0.0-0.8); MONO % 10.3 % (2.0-8.0); NEUTROPHILS # 5.9 10^3/uL (1.5-8.5); PLATELET COUNT, AUTOMATED 199 10^3/uL (150-450); RED BLOOD COUNT 3.89 10^6/uL (4.30-6.10); WHITE BLOOD COUNT 7.4 10^3/uL (4.0-10.0)
[2022-02-12 06:36] LABS: BLOOD UREA NITROGEN 15 MG/DL (9-23); CARBON DIOXIDE LEVEL 16 MMOL/L (20-31); CHLORIDE LEVEL 112 MMOL/L (98-107); CREATININE FOR GFR 0.77 MG/DL (0.70-1.30); GLOMERULAR FILTRATION RATE > 60.0 (>42); GLUCOSE, FASTING 139 MG/DL (74-106); SODIUM LEVEL 138 MMOL/L (136-145)
[2022-02-12] MEDS: ACETAMINOPHEN TAB 650MG DOSE (2X325MG) PO PRN ×2 (06:40→20:17)
[2022-02-12] MEDS ORDERED: ISOVUE-370 76% 100ML VIAL As Ordered ONE (09:44)
[2022-02-12] MEDS: TOPIRAMATE (TopAMAX) 100 MG TAB PO SCH ×2 (10:14→20:17)
[2022-02-12] MEDS: MIRTAZAPINE 15 MG TAB PO SCH (10:14)
[2022-02-12] MEDS: lamoTRIgine 100MG TAB PO SCH ×2 (10:14→20:17)
[2022-02-12] MEDS: levETIRAcetam 250MG TABLET (KEPPRA) PO SCH ×2 (10:15→20:16)
[2022-02-12] MEDS: FINASTERIDE 5MG TAB PO SCH (10:15)
[2022-02-12] MEDS ORDERED: ENOXAPARIN 40MG/0.4ML SYRINGE (J1650 PER 10MG) SC SCH (20:00)
[2022-02-13 06:44] VITALS: BP 96/67
[2022-02-13 08:11] LABS: BASO % 0.3 % (0.0-1.0); HEMATOCRIT 35.8 % (42.0-52.0); HEMOGLOBIN 11.5 g/dl (13.5-17.5); LYMPH # 0.8 10^3/uL (1.5-5.0); LYMPH % 10.1 % (24.0-44.0); MEAN CORPUSCULAR HEMOGLOBIN 29.9 pg (27.0-33.0); MEAN CORPUSCULAR HGB CONC 32.1 g/dl (32.0-36.5); MEAN CORPUSCULAR VOLUME 93.2 fl (80.0-96.0); MONO # 0.9 10^3/uL (0.0-0.8); PLATELET COUNT, AUTOMATED 230 10^3/uL (150-450); RED BLOOD COUNT 3.84 10^6/uL (4.30-6.10); WHITE BLOOD COUNT 7.7 10^3/uL (4.0-10.0)
[2022-02-13 08:42] LABS: BLOOD UREA NITROGEN 18 MG/DL (9-23); CARBON DIOXIDE LEVEL 21 MMOL/L (20-31); CHLORIDE LEVEL 111 MMOL/L (98-107); CREATININE FOR GFR 0.94 MG/DL (0.70-1.30); GLOMERULAR FILTRATION RATE > 60.0 (>42); GLUCOSE, FASTING 117 MG/DL (74-106); POTASSIUM SERUM 3.7 MMOL/L (3.5-5.1); SODIUM LEVEL 139 MMOL/L (136-145)
[2022-02-13] MEDS: ACETAMINOPHEN TAB 650MG DOSE (2X325MG) PO PRN (09:10)
[2022-02-13] MEDS: levETIRAcetam 250MG TABLET (KEPPRA) PO SCH (09:10)
[2022-02-13] MEDS: TOPIRAMATE (TopAMAX) 100 MG TAB PO SCH (09:11)
[2022-02-13] MEDS: FINASTERIDE 5MG TAB PO SCH (09:11)
[2022-02-13] MEDS: MIRTAZAPINE 15 MG TAB PO SCH (09:11)
[2022-02-13] MEDS: lamoTRIgine 100MG TAB PO SCH (09:11)
[2022-02-13] MEDS ORDERED: LOVE1INJ SC (11:39)
[2022-02-13] MEDS ORDERED: MIDODRINE 5 MG TAB PO ONE (13:00)
[2022-02-13] MEDS ORDERED: NS 1,000 ML IV ONE (13:00)
[2022-02-13] MEDS ORDERED: LACTULOSE 20 GM/30 ML SYRUP UD PO ONE (13:00)
[2022-02-13 13:04] VITALS: BP 88/60
[2022-02-13 13:35] VITALS: BP 100/70
[2022-02-13] MEDS ORDERED: MIDO5TA PO (13:41)
[2022-02-13 13:53] VITALS: BP 104/70
== END 2022-02-13 14:10 | DRG 522 ==
LOC: M ED 17:08 → M ED INP 22:37 → M MS5PR 02-10 05:01
PROVIDERS: ADMIT Internal Medicine; ATTEND Internal Medicine
PROC: 0SRR0JA Replacement of Right Hip Joint, Femoral Surface with Synthetic Substitute, Uncemented, Open Approach (ICD-10-PCS; principal; 2022-02-11 16:00)
DX: S72.011A Unspecified intracapsular fracture of right femur, initial encounter for closed fracture (principal); W01.0XXA Fall on same level from slipping, tripping and stumbling without subsequent striking against object, initial encounter; Y92.122 Bedroom in nursing home as the place of occurrence of the external cause; G40.909 Epilepsy, unspecified, not intractable, without status epilepticus; Z87.891 Personal history of nicotine dependence; F32.A Depression, unspecified; Z20.822 Contact with and (suspected) exposure to COVID-19; N40.0 Benign prostatic hyperplasia without lower urinary tract symptoms; Z66 Do not resuscitate; Z79.899 Other long term (current) drug therapy; J45.909 Unspecified asthma, uncomplicated

== ENCOUNTER → 2022-02-09 | Outpatient (REF) | payer MEDICARE, MEDICAID ==
[~2022-02-09] MED LIST changes: +ACET-907 PO; +BISA10SU27 PR; +ERGO500029 PO; +FINA5TAB2 PO; +FLEEENE12 PR; +IPRA0.00 INH; +KEPP10002 PO; +LAMO200T3 PO; +LOVE1INJ SC; +MIDO5TA PO; +MILKSUS3 PO; +MIRT-62 PO; +TOPI200T7 PO
== END ==
LOC: SKLAB5 13:43
PROVIDERS: ATTEND Nurse Practitioner Adult Health
DX: S72.091A Other fracture of head and neck of right femur, initial encounter for closed fracture (principal)

== ENCOUNTER → 2022-02-20 | Outpatient (REF) | payer MEDICARE, MEDICAID ==
[~2022-02-20] MED LIST changes: +ACET-907 PO; +BISA10SU27 PR; +ERGO500029 PO; +FINA5TAB2 PO; +FLEEENE12 PR; +IPRA0.00 INH; +KEPP10002 PO; +LAMO200T3 PO; +LOVE1INJ SC; +MIDO5TA PO; +MILKSUS3 PO; +MIRT-62 PO; +TOPI200T7 PO
== END ==
LOC: SKLAB5 13:03
PROVIDERS: ATTEND Internal Medicine
DX: J98.4 Other disorders of lung (principal)

== ENCOUNTER → 2022-02-23 | Outpatient (REF) | payer MEDICARE, MEDICAID ==
[~2022-02-23] MED LIST changes: +ACET-683 PO; +BACI1CAP PO; +ENSU1LIQ PO; +HYDR-3713 PO; +MIRT-60 PO; +NYST1POW9 TOP
[2022-02-23 11:24] LABS: HEMATOCRIT 35.6 % (42.0-52.0); HEMOGLOBIN 11.4 g/dl (13.5-17.5); MEAN CORPUSCULAR HEMOGLOBIN 29.7 pg (27.0-33.0); MEAN CORPUSCULAR VOLUME 92.7 fl (80.0-96.0); PLATELET COUNT, AUTOMATED 505 10^3/uL (150-450); RED BLOOD COUNT 3.84 10^6/uL (4.30-6.10); WHITE BLOOD COUNT 14.7 10^3/uL (4.0-10.0)
[2022-02-23 11:53] LABS: ALBUMIN 2.1 G/DL (3.2-5.2); ALKALINE PHOSPHATASE 136 U/L (46-116); ALT/SGPT 40 U/L (7.0-40); AST/SGOT 114 U/L (<34); BILIRUBIN,TOTAL 0.3 MG/DL (0.3-1.2); BLOOD UREA NITROGEN 28 MG/DL (9-23); CALCIUM LEVEL 8.3 MG/DL (8.3-10.6); CARBON DIOXIDE LEVEL 16 MMOL/L (20-31); CHLORIDE LEVEL 111 MMOL/L (98-107); CREATININE FOR GFR 0.93 MG/DL (0.70-1.30); GLOMERULAR FILTRATION RATE > 60.0 (>42); GLUCOSE, FASTING 163 MG/DL (74-106); POTASSIUM SERUM 3.9 MMOL/L (3.5-5.1); SODIUM LEVEL 139 MMOL/L (136-145)
== END ==
LOC: SKLAB5 10:53
PROVIDERS: ATTEND Nurse Practitioner
DX: J18.9 Pneumonia, unspecified organism (principal); R63.8 Other symptoms and signs concerning food and fluid intake

== ENCOUNTER → 2022-02-24 | Outpatient (REF) | payer MEDICARE, MEDICAID ==
[~2022-02-24] MED LIST changes: -ACET-683 PO; -BACI1CAP PO; -ENSU1LIQ PO; -HYDR-3713 PO; -MIRT-60 PO; -NYST1POW9 TOP
[2022-02-24 08:38] LABS: HEMATOCRIT 36.8 % (42.0-52.0); HEMOGLOBIN 11.8 g/dl (13.5-17.5); MEAN CORPUSCULAR HEMOGLOBIN 29.7 pg (27.0-33.0); MEAN CORPUSCULAR HGB CONC 32.1 g/dl (32.0-36.5); MEAN CORPUSCULAR VOLUME 92.7 fl (80.0-96.0); PLATELET COUNT, AUTOMATED 528 10^3/uL (150-450); RED BLOOD COUNT 3.97 10^6/uL (4.30-6.10); WHITE BLOOD COUNT 20.4 10^3/uL (4.0-10.0)
[2022-02-24 09:05] LABS: PREALBUMIN 7.4 MG/DL (10.0-40.0)
[2022-02-24 09:06] LABS: ALBUMIN 1.9 G/DL (3.2-5.2); ALKALINE PHOSPHATASE 133 U/L (46-116); ALT/SGPT 38 U/L (7.0-40); AST/SGOT 87 U/L (<34); BILIRUBIN,TOTAL 0.4 MG/DL (0.3-1.2); BLOOD UREA NITROGEN 30 MG/DL (9-23); CALCIUM LEVEL 8.7 MG/DL (8.3-10.6); CARBON DIOXIDE LEVEL 18 MMOL/L (20-31); CHLORIDE LEVEL 108 MMOL/L (98-107); CREATININE FOR GFR 1.04 MG/DL (0.70-1.30); GLOMERULAR FILTRATION RATE > 60.0 (>42); GLUCOSE, FASTING 158 MG/DL (74-106); SODIUM LEVEL 139 MMOL/L (136-145); TOTAL PROTEIN 6.8 G/DL (5.7-8.2)
== END ==
LOC: SKLAB5 07:55
PROVIDERS: ATTEND Nurse Practitioner Adult Health
DX: J18.1 Lobar pneumonia, unspecified organism (principal)

== ENCOUNTER → 2022-02-25 | Outpatient (CLI) | payer MEDICARE, MEDICAID ==
[~2022-02-25] MED LIST changes: +ACET-683 PO; +BACI1CAP PO; +ENSU1LIQ PO; +HYDR-3713 PO; +MIRT-60 PO; +NYST1POW9 TOP
== END ==
LOC: M SOG 08:00
PROVIDERS: ATTEND Orthopaedic Surgery Hand Surgery
DX: M25.551 Pain in right hip (principal); Z96.641 Presence of right artificial hip joint; M16.12 Unilateral primary osteoarthritis, left hip; J18.9 Pneumonia, unspecified organism

== ENCOUNTER → 2022-02-25 | Outpatient (REF) | payer MEDICARE, MEDICAID ==
[2022-02-25 08:13] LABS: HEMATOCRIT 36.6 % (42.0-52.0); HEMOGLOBIN 11.4 g/dl (13.5-17.5); MEAN CORPUSCULAR HEMOGLOBIN 29.2 pg (27.0-33.0); MEAN CORPUSCULAR HGB CONC 31.1 g/dl (32.0-36.5); MEAN CORPUSCULAR VOLUME 93.8 fl (80.0-96.0); PLATELET COUNT, AUTOMATED 514 10^3/uL (150-450); WHITE BLOOD COUNT 15.1 10^3/uL (4.0-10.0)
[2022-02-25 08:42] LABS: BLOOD UREA NITROGEN 38 MG/DL (9-23); CALCIUM LEVEL 8.4 MG/DL (8.3-10.6); CARBON DIOXIDE LEVEL 19 MMOL/L (20-31); CHLORIDE LEVEL 109 MMOL/L (98-107); CREATININE FOR GFR 1.05 MG/DL (0.70-1.30); GLOMERULAR FILTRATION RATE > 60.0 (>42); GLUCOSE, FASTING 157 MG/DL (74-106); POTASSIUM SERUM 3.9 MMOL/L (3.5-5.1); SODIUM LEVEL 140 MMOL/L (136-145)
== END ==
LOC: SKLAB5 08:46
PROVIDERS: ATTEND Nurse Practitioner Adult Health
DX: J18.9 Pneumonia, unspecified organism (principal)

== ENCOUNTER → 2022-02-26 | Outpatient (REF) | payer MEDICARE, MEDICAID ==
[~2022-02-26] MED LIST changes: -ACET-683 PO; -BACI1CAP PO; -ENSU1LIQ PO; -HYDR-3713 PO; -MIRT-60 PO; -NYST1POW9 TOP
[2022-02-26 10:43] LABS: HEMATOCRIT 34.3 % (42.0-52.0); HEMOGLOBIN 10.6 g/dl (13.5-17.5); MEAN CORPUSCULAR HEMOGLOBIN 29.7 pg (27.0-33.0); MEAN CORPUSCULAR HGB CONC 30.9 g/dl (32.0-36.5); MEAN CORPUSCULAR VOLUME 96.1 fl (80.0-96.0); PLATELET COUNT, AUTOMATED 489 10^3/uL (150-450); RED BLOOD COUNT 3.57 10^6/uL (4.30-6.10); WHITE BLOOD COUNT 10.6 10^3/uL (4.0-10.0)
[2022-02-26 11:17] LABS: BLOOD UREA NITROGEN 39 MG/DL (9-23); CALCIUM LEVEL 8.2 MG/DL (8.3-10.6); CARBON DIOXIDE LEVEL 17 MMOL/L (20-31); CHLORIDE LEVEL 107 MMOL/L (98-107); CREATININE FOR GFR 0.93 MG/DL (0.70-1.30); GLOMERULAR FILTRATION RATE > 60.0 (>42); GLUCOSE, FASTING 193 MG/DL (74-106); POTASSIUM SERUM 3.5 MMOL/L (3.5-5.1); SODIUM LEVEL 138 MMOL/L (136-145)
== END ==
LOC: SKLAB5 09:39
PROVIDERS: ATTEND Nurse Practitioner Adult Health
DX: J18.9 Pneumonia, unspecified organism (principal)

== ENCOUNTER → 2022-02-27 | Outpatient (REF) | payer MEDICARE, MEDICAID ==
[~2022-02-27] MED LIST changes: +ACET-683 PO; +BACI1CAP PO; +ENSU1LIQ PO; +HYDR-3713 PO; +MIRT-60 PO; +NYST1POW9 TOP
[2022-02-27 09:13] LABS: HEMATOCRIT 33.7 % (42.0-52.0); HEMOGLOBIN 10.5 g/dl (13.5-17.5); MEAN CORPUSCULAR HEMOGLOBIN 29.2 pg (27.0-33.0); MEAN CORPUSCULAR HGB CONC 31.2 g/dl (32.0-36.5); MEAN CORPUSCULAR VOLUME 93.9 fl (80.0-96.0); PLATELET COUNT, AUTOMATED 491 10^3/uL (150-450); RED BLOOD COUNT 3.59 10^6/uL (4.30-6.10); WHITE BLOOD COUNT 10.3 10^3/uL (4.0-10.0)
[2022-02-27 09:41] LABS: BLOOD UREA NITROGEN 31 MG/DL (9-23); CALCIUM LEVEL 8.2 MG/DL (8.3-10.6); CARBON DIOXIDE LEVEL 18 MMOL/L (20-31); CHLORIDE LEVEL 108 MMOL/L (98-107); CREATININE FOR GFR 0.88 MG/DL (0.70-1.30); GLOMERULAR FILTRATION RATE > 60.0 (>42); GLUCOSE, FASTING 124 MG/DL (74-106); SODIUM LEVEL 141 MMOL/L (136-145)
== END ==
LOC: SKLAB5 09:58
PROVIDERS: ATTEND Nurse Practitioner Adult Health
DX: J18.9 Pneumonia, unspecified organism (principal)

== ENCOUNTER → 2022-03-06 | Outpatient (REF) | payer MEDICARE, MEDICAID ==
[~2022-03-06] MED LIST changes: -ACET-683 PO; -BACI1CAP PO; -ENSU1LIQ PO; -HYDR-3713 PO; -MIRT-60 PO; -NYST1POW9 TOP
[2022-03-06 10:41] LABS: HEMATOCRIT 33.2 % (42.0-52.0); HEMOGLOBIN 10.3 g/dl (13.5-17.5); MEAN CORPUSCULAR HEMOGLOBIN 28.9 pg (27.0-33.0); MEAN CORPUSCULAR VOLUME 93.3 fl (80.0-96.0); PLATELET COUNT, AUTOMATED 408 10^3/uL (150-450); RED BLOOD COUNT 3.56 10^6/uL (4.30-6.10); WHITE BLOOD COUNT 8.1 10^3/uL (4.0-10.0)
[2022-03-06 11:07] LABS: BLOOD UREA NITROGEN 22 MG/DL (9-23); CALCIUM LEVEL 8.1 MG/DL (8.3-10.6); CARBON DIOXIDE LEVEL 21 MMOL/L (20-31); CHLORIDE LEVEL 107 MMOL/L (98-107); CREATININE FOR GFR 0.82 MG/DL (0.70-1.30); GLOMERULAR FILTRATION RATE > 60.0 (>42); GLUCOSE, FASTING 108 MG/DL (74-106); POTASSIUM SERUM 3.4 MMOL/L (3.5-5.1); SODIUM LEVEL 138 MMOL/L (136-145)
== END ==
LOC: SKLAB5 09:41
PROVIDERS: ATTEND Internal Medicine
DX: J98.4 Other disorders of lung (principal); R53.83 Other fatigue

== ENCOUNTER → 2022-03-10 | Outpatient (REF) | payer MEDICARE, MEDICAID | LOC: SKLAB5 13:31 | PROVIDERS: ATTEND Nurse Practitioner Adult Health | DX: N18.9 Chronic kidney disease, unspecified (principal); E87.6 Hypokalemia; Z53.8 Procedure and treatment not carried out for other reasons ==

== ENCOUNTER → 2022-03-11 | Outpatient (REF) | payer MEDICARE, MEDICAID | LOC: SKLAB5 07:30 | PROVIDERS: ATTEND Internal Medicine | DX: M25.551 Pain in right hip (principal); M25.552 Pain in left hip; W19.XXXA Unspecified fall, initial encounter; Z96.641 Presence of right artificial hip joint ==

== ENCOUNTER → 2022-03-12 | Outpatient (REF) | payer MEDICARE, MEDICAID ==
[~2022-03-12] MED LIST changes: +ACET-683 PO; +BACI1CAP PO; +ENSU1LIQ PO; +HYDR-3713 PO; +MIRT-60 PO; +NYST1POW9 TOP
[2022-03-12 07:22] LABS: HEMATOCRIT 33.3 % (42.0-52.0); HEMOGLOBIN 10.4 g/dl (13.5-17.5); MEAN CORPUSCULAR HEMOGLOBIN 29.1 pg (27.0-33.0); MEAN CORPUSCULAR HGB CONC 31.2 g/dl (32.0-36.5); MEAN CORPUSCULAR VOLUME 93.3 fl (80.0-96.0); PLATELET COUNT, AUTOMATED 399 10^3/uL (150-450); RED BLOOD COUNT 3.57 10^6/uL (4.30-6.10); WHITE BLOOD COUNT 7.7 10^3/uL (4.0-10.0)
[2022-03-12 07:49] LABS: BLOOD UREA NITROGEN 20 MG/DL (9-23); CALCIUM LEVEL 8.2 MG/DL (8.3-10.6); CARBON DIOXIDE LEVEL 19 MMOL/L (20-31); CHLORIDE LEVEL 109 MMOL/L (98-107); CREATININE FOR GFR 0.73 MG/DL (0.70-1.30); GLOMERULAR FILTRATION RATE > 60.0 (>42); GLUCOSE, FASTING 114 MG/DL (74-106); POTASSIUM SERUM 3.6 MMOL/L (3.5-5.1); SODIUM LEVEL 140 MMOL/L (136-145)
== END ==
LOC: SKLAB5 08:42
PROVIDERS: ATTEND Nurse Practitioner Adult Health
DX: N18.9 Chronic kidney disease, unspecified (principal); E87.6 Hypokalemia